=== PATIENT | female | born 1975 | race Two or more races ===

== ENCOUNTER 2016-12-20 12:15 | Observation (INO) | payer MEDICAID ==
[~2016-12-20] VITALS: Ht 165.1 cm; Wt 90.7 kg
[~2016-12-20 12:15] MED LIST: CALC0.25 PO; FERR325T50 PO
[2016-12-20] MEDS ORDERED: ONDANSETRON HCL 4 MG/2 ML VIAL IV ONE (13:30)
[2016-12-20 13:37] LABS: Basophils # (auto) 0 uL; Basophils % (auto) 0.5 % (0.0-2.0); Eosinophils # (auto) 0.1 uL; Hematocrit 49.2 % (36.0-46.0); Hemoglobin 16.8 g/dL (12.2-16.2); Lymphocytes # (auto) 1.7 uL; Mean Corpuscular Hemoglobin 30.3 pg (28.0-32.0); Mean Corpuscular Hgb Conc. 34.1 g/dL (32.0-36.0); Mean Corpuscular Volume 88.9 fL (80.0-100.0); Mean Platelet Volume 9.4 fL (7.4-10.4); Monocytes # (auto) 0.4 uL; Monocytes % (auto) 3.5 % (0.0-12.0); Platelet Count (auto) 336 10^3/uL (140-450); Red Cell Distribution Width 14.1 % (11.6-16.0); White Blood Cell 10.2 10^3/uL (4.4-10.8)
[2016-12-20 13:56] LABS: INR 0.97 (0.9-1.15); Partial Thromboplastin Time 29.6 sec (22.64-33.71); Prothrombin Time 10.6 sec (9.37-12.3)
[2016-12-20 14:04] LABS: Albumin 4.2 g/dL (3.4-5.0); Alkaline Phosphatase 120 U/L (45-117); Anion Gap 12 (5-15); Aspartate Aminotransferase 20 U/L (15-37); BUN/Creatinine Ratio 15.8; Bilirubin, Total 1.7 mg/dL (0.2-1.0); Blood Urea Nitrogen 12 mg/dL (7-18); Calcium 9.5 mg/dL (8.5-10.1); Carbon Dioxide 21 mmol/L (21-32); Chloride 102 mmol/L (98-107); GFR African American 109 mL/min; GFR Non-African American 90 mL/min; Glucose 139 mg/dL (74-106); Potassium 4.2 mmol/L (3.5-5.1); Sodium 135 mmol/L (136-145); Total Protein 9.3 g/dL (6.4-8.2)
[2016-12-20] MEDS ORDERED: ASPirin-EC 81 mg tab PO ONE (14:15)
[2016-12-20] MEDS ORDERED: KETOROLAC TROMETH 30 MG/ML 1ML VIAL IV ONE (14:15)
[2016-12-20 14:53] VITALS: BP 132/79
[2016-12-20 16:12] LABS: Urine Bilirubin Negative (Negative); Urine Blood Negative /uL (Negative); Urine Color Yellow (Yellow); Urine Glucose Normal (Normal); Urine Ketone Negative (Negative); Urine Nitrite Negative (Negative); Urine RBC 1 /hpf (0 - 4); Urine Squamous Epithelial Cell MOD /hpf (<5); Urine Urobilinogen Normal (Negative); Urine pH 5.5 (5.0-8.0)
== END 2016-12-20 15:14 | disposition home or self-care (01) | DRG 54 ==
LOC: ER 12:15 → OVERFLOW 13:08 → ER 15:14
PROVIDERS: ADMIT Family Medicine; ATTEND Family Medicine
DX: G43.909 Migraine, unspecified, not intractable, without status migrainosus (principal); R07.89 Other chest pain; R11.0 Nausea
CPT/HCPCS: 36415; 70450; 71010; 80053; 81001; 83735; 84443; 84484; 85025; 85379; 85610; 85730; 93005; 96374; 99285; G0378; J2405

== ENCOUNTER 2019-12-09 19:41 | Emergency (ER) | payer MEDICAID, OTHER ==
[~2019-12-09] VITALS: Ht 154.9 cm; Wt 81.6 kg
[2019-12-09] MEDS ORDERED: BACITRACIN TOP OINT 1 UD PKG TOP ONE (22:15)
[2019-12-09] MEDS ORDERED: LIDOCAINE 1% (LOCAL ANESTH.) PF 5ml SDV ID ONE (22:15)
[2019-12-09] MEDS ORDERED: IBUPROFEN 800 MG TAB PO ONE (22:15)
[2019-12-09 22:21] VITALS: BP 131/92
[2019-12-09] MEDS ORDERED: ACETAMINOPHEN 325 MG TAB PO ONE (23:45)
== END 2019-12-09 23:50 | disposition home or self-care (01) ==
LOC: ER 19:41
DX: S61.412A Laceration without foreign body of left hand, initial encounter (principal); X58.XXXA Exposure to other specified factors, initial encounter; Y93.89 Activity, other specified; Y92.89 Other specified places as the place of occurrence of the external cause; Y99.8 Other external cause status
CPT/HCPCS: 12001; 73120

== ENCOUNTER 2021-03-07 12:50 | Emergency (ER) | payer SELFPAY ==
[~2021-03-07] VITALS: Ht 165.1 cm; Wt 77.1 kg
[2021-03-07 13:56] LABS: Urine WBC None Seen /hpf (0 - 5)
[2021-03-07 14:01] LABS: Basophils # (auto) 0.1 10 ^3/uL (0-0.2); Basophils % (auto) 0.7 % (0.0-2.0); Eosinophils # (auto) 0.1 10 ^3/uL (0-0.8); Eosinophils % (auto) 0.9 % (0.0-7.0); Hematocrit 46.3 % (36.0-46.0); Lymphocytes # (auto) 2.3 10 ^3/uL (0.4-5.4); Lymphocytes % (auto) 25.5 % (10.0-50.0); Mean Corpuscular Hemoglobin 31.6 pg (28.0-32.0); Mean Corpuscular Hgb Conc. 34.6 g/dL (32.0-36.0); Mean Corpuscular Volume 91.6 fL (80.0-100.0); Monocytes # (auto) 0.5 10 ^3/uL (0-1.3); Monocytes % (auto) 6.1 % (0.0-12.0); Neutrophils # (auto) 5.9 10 ^3/uL (1.6-8.6); Neutrophils % (auto) 66.8 % (37.0-80.0); Red Blood Cells 5.06 10^6/uL (4.0-5.20); White Blood Cell 8.8 10^3/uL (4.4-10.8)
[2021-03-07 14:11] LABS: Urine Amorphous Crystal MANY /hpf (None Seen); Urine Bacteria MANY /hpf (None Seen); Urine Blood Negative /uL (Negative); Urine Specific Gravity 1.017 (1.001-1.035)
[2021-03-07 14:20] LABS: Albumin 3.6 g/dL (3.4-5.0); Calcium 9.1 mg/dL (8.5-10.1); Potassium 4.1 mmol/L (3.5-5.1)
[2021-03-07 14:23] LABS: Bilirubin, Total 1.6 mg/dL (0.2-1.0)
[2021-03-07 14:54] VITALS: BP 130/78
== END 2021-03-07 15:05 | disposition home or self-care (01) ==
LOC: ER 12:50
DX: R10.32 Left lower quadrant pain (principal); Z90.710 Acquired absence of both cervix and uterus; Z98.51 Tubal ligation status
CPT/HCPCS: 36415; 74176; 80053; 81001; 83690; 85025